=== PATIENT | male | born 1955 | race Caucasian/White ===

== ENCOUNTER 2019-05-03 10:11 | Emergency (ER) | payer BC ==
[~2019-05-03] VITALS: Ht 162.6 cm; Wt 77.1 kg
[~2019-05-03 10:11] MED LIST: COZAAR100 MG PO; FENOFIBRATE160 MG PO; GABAPENTIN300 MG PO; GLIPIZIDE10 MG PO; HYDROCODON-ACE1 EA11 PO; METFORMIN HCL500 MG PO; METOPROLOL TAR100 MG PO
== END 2019-05-03 11:47 | disposition home or self-care (01) ==
LOC: ED 10:11
DX: S30.0XXA Contusion of lower back and pelvis, initial encounter (principal); S20.211A Contusion of right front wall of thorax, initial encounter; S70.01XA Contusion of right hip, initial encounter; W10.9XXA Fall (on) (from) unspecified stairs and steps, initial encounter; I10 Essential (primary) hypertension; E11.9 Type 2 diabetes mellitus without complications; E78.00 Pure hypercholesterolemia, unspecified; Z88.5 Allergy status to narcotic agent; Z79.899 Other long term (current) drug therapy; Z79.84 Long term (current) use of oral hypoglycemic drugs
CPT/HCPCS: 71101; 72100; 72170; 99283-25; A9270

== ENCOUNTER 2021-06-17 11:19 | Emergency (ER) | payer SELFPAY ==
[~2021-06-17] VITALS: Ht 162.6 cm; Wt 69.4 kg
[2021-06-17] MEDS ORDERED: GLYBURIDE5 MG PO (13:43)
[2021-06-17] MEDS ORDERED: METFORMIN HCL500 MG PO (13:43)
== END 2021-06-17 13:51 | disposition home or self-care (01) ==
LOC: ED 11:19
DX: E11.65 Type 2 diabetes mellitus with hyperglycemia (principal); I10 Essential (primary) hypertension; E78.00 Pure hypercholesterolemia, unspecified; Z88.5 Allergy status to narcotic agent
CPT/HCPCS: 99283